=== PATIENT | female | born 1990 | race Caucasian/White ===

== ENCOUNTER 2023-08-03 07:48 | Inpatient (IN) ==
[2023-08-03] MEDS ORDERED: OXYTOCIN 30 UNITS/500 ML BAG IV PRN ×2 (08:36)
[2023-08-03] MEDS ORDERED: LIDOCAINE 1% LOCAL 20 ML VIAL INFIL PRN (08:36)
[2023-08-03 09:27] LABS: Hematocrit (blood only) 32.9 % (37.0-47.0); Hemoglobin 11.6 g/dl (12.0-16.0); Mean Corpuscular Hemoglobin 31.3 pg (25.0-34.0); Mean Corpuscular Hgb Conc 35.3 g/dL (32.0-36.0); Mean Corpuscular Volume 88.7 fL (80.0-100.0); Mean Platelet Volume 10.5 fL (9.4-12.4); Platelet Count 167 K/uL (130-400); RDW Coefficient of Variation 12.9 % (11.5-14.5); RDW Standard Deviation 40.7 fL (36.4-46.3); Red Blood Count 3.71 M/uL (4.20-5.40); White Blood Count 7.93 K/ul (4.8-10.8)
[2023-08-03] MEDS: LACTATED RINGER'S 1,000 ML IV PRN ×3 (09:32→20:46)
[2023-08-03 09:45] LABS: Albumin Globulin Ratio 1.5 (0.9-2); Albumin Level 3.5 gm/dl (3.4-5.0); Bilirubin,Total 0.4 mg/dl (0.2-1.0); Calcium 9.5 mg/dl (8.6-10.3); Creatinine Clr Calc Pharmacy 118.7 ml/min; Est GFR (African American) 136.7 ml/min; Globulin 2.4 gm/dl (2.5-4.0); Potassium 3.5 mmol/L (3.5-5.1); Total Protein 5.9 gm/dl (6.0-8.3)
--- NOTE | 2023-08-03 09:48 | History & Physical Report ---
Date of Service August 03, 2023 Assessment & Plan (1) Gestational HTN: Plan: 32 yo at 38 wga presents for IOL for GHTN normal to mild range BPs Fetus cat 1 Labor - 35cc guallpa placed, will start pit gHTN - will get baseline labs for today GBS neg epidural prn Admission and Anticipated Discharge Date Admission Date: August 03, 2023 History of Present Illness Chief Complaint: IOL Primary Care Provider: Frieda Basilio MD 32 yo at 38 wga presents for iol for gHTN. +FM; denies ctx, LOF, VB. 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 Hx: G1 2010 eAB G2 current regular cycles denies hx STIs Allergies Allergy/AdvReac Type Severity Reaction Status Date / Time Sulfa (Sulfonamide Allergy Mild Hives Verified 07/30/23 09:15 Antibiotics) Home Medications Medication Instructions Recorded Confirmed Type prenat.vits,elyse,cvh-zfqv-mmope 1 tab PO DAILY 01/06/23 07/30/23 History Patient History Medical History Acid reflux Anxiety and depression SVT (supraventricular tachycardia) until age 15 Varicella vaccination Surgical History H/O tooth extraction Family History Mother Anxiety Depression Hypertension Gallbladder disease Diverticulitis Hemochromatosis Father Anxiety Hypertension Sister Anxiety Grandmother (Paternal) Endometrial cancer Grandfather (Paternal) Cerebral aneurysm Denies family history of Ovarian cancer Prostate cancer Myocardial infarction Breast cancer Colorectal cancer Social History Smoking Status: Former smoker Tobacco Type: Cigarettes Age Started Using Tobacco: 18; Age Quit Using Tobacco: 26; packs per day: 0.5; Second Hand Exposure: No; Do You Dip or Chew Tobacco: No; Hx Alcohol Use: No Hx Substance Use: No Preferred Language: Vietnamese Visual Impairment: No Limitations Hearing Ability: Normal Shells Inspector Required: No Beliefs That Will Affect Care: None marital status: marital status details: Padilla Manjinder(33) [phone] Current Living Situation: Spouse Current Living Situation Comment: lives with spouse, dogs current occupational status: employed current occupation: [employer] Other Information That Helps Us Care for You: No Feels Safe at Home: Yes Safety Concerns: Feels Safe At This Time Dental Care, Regularly: Yes Physical Activity Frequency: 1-2 Times per Week Assistive Devices: None Physical Exam Genitourinary: OB Exam Abdomen: + vertex (confirmed by bsus) and + estimated weight (6-7) Manual OB Exam: + cervical dilation 1 cm, + cervical effacement 50% and + station -2 OB Exam Monitor Tracing: + external FHT monitor used, + external uterine monitor used and + category I Results & Data Vital Signs (Past 12 Hours) Vital Signs Temp Pulse Resp BP 08/03/23 09:34 77 20 140/81 08/03/23 08:47 93 H 134/88 08/03/23 08:37 90 135/90 08/03/23 08:27 100 H 148/86 H 08/03/23 08:16 83 142/84 H 08/03/23 08:08 98.2 F 20 Laboratory Results OB Labs: Blood Type A Positive 01/11/23 Antibody Screen NEGATIVE 01/11/23 Hemoglobin 11.6 g/dl (12.0-16.0) L 07/23/23 Hematocrit 33.8 % (37.0-47.0) L 07/23/23 Mean Corpuscular Volume 91.4 fL (80.0-100.0) 07/23/23 Platelet Count 160 K/uL (130-400) 07/23/23 Rubella IgG Antibody Immune (Immune) 01/11/23 Rapid Plasma Reagin Nonreactive (Nonreactive) 01/11/23 Hepatitis B Surface Antigen. NON-REACTIVE (NON-REACTIVE) 01/11/23 Hepatitis C Antibody (EIA) NON-REACTIVE (NON-REACTIVE) 01/11/23 HIV (1&2) Ag and Ab Confirmation NON-REACTIVE (NON-REACTIVE) 01/11/23 Glucose 1 Hour 50 gm Load 99 mg/dl (70-130) 05/24/23 Maternal Serum Alpha Fetoprotein 37.9 ng/mL 03/02/23 OB Optional Labs: Chlamydia trachomatis RNA Not Detected (NotDetected) 01/11/23 Neisseria gonorrhoeae RNA Not Detected (NotDetected) 01/11/23 Alpha Fetoprotein Triple Screen SEE NOTE 03/02/23 Labs Reviewed: cfdna-low risk--mln cf/sma-negative--mln neg afp--akh GBS neg Diagnostic Findings 07/23 EFW 2893g, 49%, ant plac Coding Level of Care Code None Diagnoses Gestational HTN O13.9
[2023-08-03 10:24] LABS: Total Protein Urine Random < 4.0 mg/dl (0-11.9)
[2023-08-03 10:30] LABS: Creatinine Urine Random 21.2 mg/dl
[2023-08-03] MEDS ORDERED: LIDOCAINE 2%/EPINEPHRINE 1:200,000 20 ML PF ONE (13:38)
[2023-08-03] MEDS ORDERED: SODIUM CHLORIDE 0.9% PF INJ 10 ML VIAL ONE (13:38)
[2023-08-03] MEDS ORDERED: fentaNYL citrate PF 100 MCG/2 ML VIAL ONE (13:38)
[2023-08-03] MEDS ORDERED: ePHEDrine sulfate 50 MG/ML AMP ONE (13:38)
[2023-08-03] MEDS ORDERED: BUPIVACAINE 0.25% PF 30 ML VIAL ONE (13:38)
[2023-08-03] MEDS ORDERED: fentaNYL 2MCG/ML ROPIVACAINE 1.25MG/ML 100 ML BAG EPI ONE (13:39)
[2023-08-03] MEDS ORDERED: LIDOCAINE 2%/EPINEPHRINE 1:200,000 20 ML PF EPI STA (13:46)
[2023-08-03] MEDS ORDERED: ROPIVACAINE 0.5% PF 5 MG/ML 20 ML VIAL EPI PRN (13:46)
[2023-08-03] MEDS ORDERED: fentaNYL citrate PF 100 MCG/2 ML VIAL EPI PRN (13:46)
[2023-08-03] MEDS ORDERED: SODIUM CHLORIDE 0.9% PF INJ 10 ML VIAL EPI PRN (13:46)
[2023-08-03] MEDS ORDERED: diphenhydrAMINE 50 MG/ML VIAL IV PRN (13:46)
[2023-08-03] MEDS ORDERED: SODIUM CHLORIDE 0.9% PF INJ 10 ML VIAL EPI STA (13:46)
[2023-08-03] MEDS ORDERED: fentaNYL citrate PF 100 MCG/2 ML VIAL EPI STA (13:46)
[2023-08-03] MEDS ORDERED: fentaNYL 2MCG/ML ROPIVACAINE 1.25MG/ML 100 ML BAG EPI PRN (13:46)
[2023-08-03] MEDS ORDERED: NALOXONE HCL 0.4 MG/1 ML VIAL/CARP IV PRN (13:46)
[2023-08-03] MEDS ORDERED: LIDOCAINE 2% MPF LOCAL 5 ML VIAL EPI PRN (13:46)
[2023-08-03] MEDS ORDERED: NALOXONE HCL 1 MG in SODIUM CHLORIDE 0.9% 1,000 ML IV PRN (13:46)
[2023-08-03] MEDS ORDERED: BUPIVACAINE 0.25% PF 30 ML VIAL EPI PRN (13:46)
[2023-08-03] MEDS ORDERED: ePHEDrine sulfate 50 MG/ML AMP IV PRN (13:46)
[2023-08-03] MEDS ORDERED: NALBUPHINE HCL INJ 10 MG/ML AMP IV PRN (13:46)
[2023-08-03] MEDS ORDERED: BUPIVACAINE 0.25% PF 30 ML VIAL EPI STA (13:46)
--- NOTE | 2023-08-03 13:46 | Anesthesiology Consultation ---
Date of Service August 03, 2023 Assessment & Plan (1) Encounter for pre-operative examination: Chart Review Chart Review: Patient NOT seen in Pre Admission Testing and Acceptable Risk for Labor Epidural Consults Requested none History Height/Weight Height: 5 ft 2 in Weight: 78.018 kg Allergies Allergy/AdvReac Type Severity Reaction Status Date / Time Sulfa (Sulfonamide Allergy Mild Hives Verified 07/30/23 09:15 Antibiotics) Medications Home Medications Medication Instructions Recorded Confirmed Last Taken prenat.vits,elyse,abz-hosk-byqrm 1 tab PO DAILY 01/06/23 07/30/23 08/02/23 Active Medications Generic Name Dose Route Start Last Admin Trade Name Freq PRN Reason Stop Dose Admin Oxytocin 30 units in 500 mls @ 10 mls/hr 08/03/23 08:36 08/03/23 13:00 Pitocin IV 08/05/23 08:35 0.6 units/hr .Q24H PRN 10 mls/hr Labor Induction/Augmentation Titration Protocol 0.6 UNITS/HR Lactated Ringer's 1,000 mls @ 125 mls/hr 08/03/23 08:36 08/03/23 09:32 Lr IV 08/05/23 08:35 125 mls/hr .Q8H PRN Administration L&D Protocol Protocol Past Medical History Medical History Acid reflux Anxiety and depression SVT (supraventricular tachycardia) until age 15 Varicella vaccination Past Family History Family History Mother Anxiety Depression Hypertension Gallbladder disease Diverticulitis Hemochromatosis Father Anxiety Hypertension Sister Anxiety Grandmother (Paternal) Endometrial cancer Grandfather (Paternal) Cerebral aneurysm Denies family history of Ovarian cancer Prostate cancer Myocardial infarction Breast cancer Colorectal cancer Past Surgical History Surgical History H/O tooth extraction wisdom teeth in 2006 Social History Smoking Status: Former smoker Do You Dip or Chew Tobacco: No Hx Alcohol Use: No Hx Substance Use: No Physical Exam Vital Signs Last Vital Signs Temp 98.2 F 08/03/23 08:08 Pulse 100 H 08/03/23 13:33 Resp 20 08/03/23 12:26 BP 170/94 H 08/03/23 13:33 Testing Laboratory Results 08/03/23 08:50 08/03/23 08:50
--- NOTE | 2023-08-03 14:50 | Labor Progress Brief Note ---
Date of Service August 03, 2023 Subjective Comfortable w/ epidural, guallpa fell out before it Assessment & Plan (1) Gestational HTN: Plan: 32 yo at 38 wga presents for IOL for GHTN normal to mild range BPs Fetus cat 1 Labor - now s/p arom, continue pit gHTN - labs wnl GBS neg epidural in place Admission and Anticipated Discharge Date Admission Date: August 03, 2023 Physical Exam Genitourinary: Manual OB Exam: + cervical dilation 3 cm, + cervical effacement 50%, + station -2 and + amniotic fluid (arom) OB Exam Monitor Tracing: + external FHT monitor used, + external uterine monitor used (q4-5) and + category I (135/mod/+accel/-decel) Results & Data Vital Signs (Past 12 Hours) Vital Signs Temp Pulse Resp BP Pulse Ox 08/03/23 14:43 88 99 08/03/23 14:38 96 H 100 08/03/23 14:33 99 H 100 08/03/23 14:32 102 H 128/76 08/03/23 14:28 97 H 99 08/03/23 14:26 93 H 130/75 08/03/23 14:23 89 99 08/03/23 14:21 97 H 134/82 08/03/23 14:18 101 H 99 08/03/23 14:17 102 H 20 135/79 08/03/23 14:13 95 H 100 08/03/23 14:09 95 H 20 133/74 08/03/23 14:08 100 08/03/23 14:08 99 H 08/03/23 14:08 93 H 145/71 H 08/03/23 14:06 94 H 20 149/91 H 08/03/23 14:03 102 H 140/67 100 08/03/23 14:02 96 H 20 144/67 H 08/03/23 14:00 99 H 142/77 H 08/03/23 13:58 92 H 100 08/03/23 13:57 101 H 20 154/90 H 08/03/23 13:56 91 H 154/75 H 08/03/23 13:53 98 H 100 08/03/23 13:48 92 H 100 08/03/23 13:49 91 H 20 146/95 H 08/03/23 13:33 100 H 170/94 H 08/03/23 12:26 94 H 20 133/83 08/03/23 11:25 82 134/78 08/03/23 10:42 84 20 132/81 08/03/23 10:00 18 08/03/23 10:00 18 08/03/23 09:34 77 20 140/81 08/03/23 08:47 93 H 134/88 08/03/23 08:37 90 135/90 08/03/23 08:27 100 H 148/86 H 08/03/23 08:16 83 142/84 H 08/03/23 08:08 98.2 F 20 Coding Level of Care Code None Diagnoses Gestational HTN O13.9
--- NOTE | 2023-08-04 00:36 | Delivery Summary ---
Vaginal Delivery Summary Date of Service August 04, 2023 Vaginal Delivery Summary and 2nd Degree LAC PREOPERATIVE DIAGNOSIS: 1. Single intrauterine at 38 1/7 wga 2. Gestational hypertension POSTOPERATIVE DIAGNOSIS: 1. Single intrauterine at 38 1/7 wga 2. Gestational hypertension 3. Delivered PROCEDURE: 1. Normal spontaneous vaginal delivery. SURGEON: Nani Mccauley MD ANESTHESIA: Epidural. ESTIMATED BLOOD LOSS: 300 mL FLUIDS: Continuous LR. URINE OUTPUT: None. COMPLICATIONS: None. CONDITION: Stable. INDICATIONS: 32 yo at 38 1/7 wga presented for IOL for gHTN. Induction was begun with guallpa bulb and pitocin. Following guallpa bulb expulsion, she received an epidural for pain control and underwent arom. She continued to progress to complete and desired to push. FINDINGS: A viable female , weight pending with Apgars of 8 and 9 at 1 and 5 minutes respectively. SPECIMEN: Cord blood OPERATIVE REPORT: The patient progressed to 10 cm, 100% effaced and +2 station, pushed over intact perineum with anesthesia to deliver a viable female , weight and Apgars as above. Head of delivered in DARON position. No nuchal cord was present. Body and shoulders were delivered without difficulty. was delivered to maternal abdomen and nursing staff. Delayed cord clamping was performed for 60 seconds. Cord was clamped and cut. Cord blood was obtained. Placenta delivered spontaneously intact with 3-vessel cord. IV oxytocin and fundal massage were given for excellent hemostasis. Vagina, cervix, perineum, and placenta were inspected. A second degree laceration was noted and repaired using 3-0 vicryl in the usual fashion. There was excellent hemostasis. Sponge and needle counts correct x2. No sponges were left behind. Mother and stable in immediate period. [facility] [place] Vaginal Delivery Charge Vaginal Delivery Codes: 84851 global code for the antepartum, delivery, and post- Delivery Type Details: and 2nd Degree LAC
[2023-08-04] MEDS ORDERED: ACETAMINOPHEN 325 MG TAB PO PRN (00:42)
[2023-08-04] MEDS ORDERED: BENZOCAINE 20% SPRY 85 APPLN/85 GM CAN EXT PRN (00:42)
[2023-08-04] MEDS ORDERED: HYDROCORTISONE ACETATE 25 MG SUPP PR PRN (00:42)
[2023-08-04] MEDS ORDERED: OXYTOCIN 30 UNITS/500 ML BAG IV PRN (00:42)
[2023-08-04] MEDS ORDERED: DIPHTHERIA/TETANUS/PERTUSSIS Vaccine (Tdap, Age 7+yrs) 0.5mL SYR/VL IM ONE (00:42)
--- NOTE | 2023-08-04 00:50 | Anesthesia Procedure Note ---
Date of Service August 04, 2023 Anesthesia Post Epidural Note Vital Signs Vital Signs: Temp Pulse Resp BP Pulse Ox 99.9 F H 96 H 18 138/62 98 08/03/23 21:18 08/04/23 00:46 08/03/23 21:18 08/04/23 00:34 08/04/23 00:46 Pain Intensity Bilateral Abdomen: Pain Intensity: 3 Notes Mental Status: alert / awake / arousable and participated in evaluation Nausea / Vomiting: adequately controlled Pain: adequately controlled Airway Patency, RR, SpO2: stable & adequate BP & HR: stable & adequate Hydration State: stable & adequate Neuraxial Anesthesia: was administered and sensory block is resolving Anesthetic Complications: no major complications apparent and Pt Satisfied with anesthetic care Epidural: Removed without complications and With tip intact
[2023-08-04] MEDS: IBUPROFEN 600 MG TAB PO PRN ×2 (08:27→21:34)
[2023-08-04] MEDS: DOCUSATE SODIUM 100 MG CAP PO SCH ×2 (08:28→21:33)
[2023-08-04] MEDS: PRENATAL VITAMIN 1 TAB PO SCH (08:28)
[2023-08-04] MEDS: FERROUS SULFATE 325 MG TAB PO SCH (08:28)
--- NOTE | 2023-08-05 05:25 | Obstetrical Progress Note ---
Date of Service <Alex Huggins DO - Last Filed: 08/05/23 07:15> August 05, 2023 Assessment & Plan <Alex Huggins DO - Last Filed: 08/05/23 07:15> (1) Gestational HTN: (2) (spontaneous vaginal delivery): Plan Post day 1 s/p Vital signs reviewed, mild overnight tachycardia but blood pressure reassuring Pt feels well today, eating, voiding, and ambulating well Pain well controlled with Motrin Routine post care - OOB, ambulation, diet progression as tolerated After discharge, will have 6 week follow-up with Dr Mccauley. <Nuzhat Valenzuela MD - Last Filed: 08/05/23 07:16> (1) Gestational HTN: (2) (spontaneous vaginal delivery): Subjective <Alex Huggins DO - Last Filed: 08/05/23 07:15> Ambulation: ambulating normally Voiding: incontinence Passing Gas:: Yes Diet Tolerance:: regular diet Lochia:: Moderate (changing pad Q3 hours) Feeding Type:: breast feeding Current Pain Level(1-10): 4 (well controlled with Motrin ) Review of Systems -Denies fever or chills -Denies dyspnea, chest pain, or palpitations -Denies breast pain -Denies dysuria -Denies headache or changes in vision Physical Exam <Alex Huggins DO - Last Filed: 08/05/23 07:15> General: Alert and oriented. No acute distress Cardiac: Regular rate and rhythm, no murmurs appreciated Respiratory: Lungs clear to auscultation bilaterally, No increased work of breathing Abdominal: Soft, non-tender, non-distended. Bowel sounds present. Uterus: Uterine fundus firm, palpable below umbilicus Extremities: No lower extremity edema, calves non-tender bilaterally Results & Data <Alex Huggins DO - Last Filed: 08/05/23 07:15> Vital Signs (Past 12 Hours) Vital Signs Temp Pulse Resp BP Pulse Ox O2 Del Method 08/04/23 23:38 36.5 C 102 H 18 125/84 98 Room Air 08/04/23 19:10 36.5 C 105 H 18 138/89 98 Room Air <Nuzhat Valenzuela MD - Last Filed: 08/05/23 07:16> Co-Signing Physician Notes Resident Physician Supervision Note: I interviewed and examined the patient. Discussed with Dr. Huggins and agree with findings and plan as documented in the note. Any exceptions or clarifications are listed here: [ ] Documented By: Nuzhat Valenzuela MD, FACOG Resident Activity Tracking <Alex Huggins, DO - Last Filed: 08/05/23 07:15> Resident Involvement: Resident Care Provided Care Provided: OB Delivery
[2023-08-05] MEDS: IBUPROFEN 600 MG TAB PO PRN (10:00)
[2023-08-05] MEDS: FERROUS SULFATE 325 MG TAB PO SCH (10:00)
[2023-08-05] MEDS: PRENATAL VITAMIN 1 TAB PO SCH (10:00)
[2023-08-05] MEDS: DOCUSATE SODIUM 100 MG CAP PO SCH (10:00)
[2023-08-05] MEDS ORDERED: bisacodyL 5 MG TABEC PO SCH (20:00)
[2023-08-06] MEDS ORDERED: bisacodyL 10 MG SUPP PR PRN
== END 2023-08-05 17:15 | disposition home or self-care (01) | DRG 807 ==
LOC: 4S1 07:48 → 4E2 08-04 03:39